=== PATIENT | female | born 1970 | race Caucasian/White ===

== ENCOUNTER → 2017-09-26 | Outpatient (RCR) | payer OTHER | END | disposition home or self-care (01) | LOC: PT | DX: Z47.89 Encounter for other orthopedic aftercare (principal) ==

== ENCOUNTER → 2017-12-27 | Outpatient (RCR) | payer OTHER | END | disposition home or self-care (01) | LOC: PT | DX: Z47.89 Encounter for other orthopedic aftercare (principal) ==

== ENCOUNTER 2018-02-21 13:30 | Outpatient (RCR) | payer OTHER | END 2018-02-21 14:00 | disposition home or self-care (01) | LOC: PT 13:30 | DX: M75.121 Complete rotator cuff tear or rupture of right shoulder, not specified as traumatic (principal) ==

== ENCOUNTER → 2019-09-16 | Outpatient (CLI) | payer OTHER ==
[~2019-09-16] MED LIST: ADVIL200 MG PO; CLINDAMYCIN300 MG PO; DIPHEDRYL25 MG PO; GABAPENTIN TAB600 MG PO; LIORESAL 1010 MG/TAB PO; NAPROXEN500 MG PO; NORCO 325 MG-51 TA1 PO; NORCO 325 MG-51 TAB PO; PEPCID 20MG TAB20 MG PO; PREDNISONE10 M1 PO; SYNTHROID0.125 MG PO; TENORMIN25 MG PO; ULTRAM 50MG TAB50 MG PO; XANAX1 MG PO
== END ==
LOC: LAB 15:04
DX: F17.200 Nicotine dependence, unspecified, uncomplicated (principal); R06.02 Shortness of breath; R05 Cough; R51 Headache; R68.83 Chills (without fever); Z87.01 Personal history of pneumonia (recurrent)

== ENCOUNTER 2020-06-09 16:00 | Emergency (ER) | payer OTHER ==
[~2020-06-09 16:00] MED LIST changes: +ADVIL 200MG TA200 MG PO; -ADVIL200 MG PO; -SYNTHROID0.125 MG PO; +SYNTHROID112 MCG PO
[2020-06-09] MEDS ORDERED: DAILY VALUE1 EACH PO (16:45)
[2020-06-09] MEDS ORDERED: ACETAMINOPHEN-H1 TA1 PO (16:47)
[2020-06-09] MEDS ORDERED: CELEXA 20MG20 MG/TA1 PO (16:48)
[2020-06-09 16:50] LABS: EOS # 0.1 (0.04-0.40); EOS % 1.5 % (1.0-5.0); HEMATOCRIT 48.5 % (37.0-47.0); LYMPH# 2.4 (1.50-4.00); MEAN CELL VOLUME 95 fl (78-100); MEAN CORPUSCULAR HEMOGLOBIN 31 pg (27-31); MEAN CORPUSCULAR HGB CONC 33 g/dL (33-37); MEAN PLATELET VOLUME 9.2 fl (7.4-10.4); MONO # 0.5 (0.20-0.80); NEU # 6.1 (1.40-6.50); PLATELET COUNT 285 K/mm3 (130-400); RED BLOOD COUNT 5.09 M/mm3 (4.10-5.30); RED CELL DISTRIBUTION WIDTH 12.5 % (11.5-14.5); WHITE BLOOD COUNT 9.2 K/mm3 (4.8-10.8)
[2020-06-09 16:57] LABS: POTASSIUM 3.7 mmol/L (3.5-5.1)
[2020-06-09 16:58] LABS: ALBUMIN 4.6 g/dL (3.5-5.0); SODIUM 142 mmol/L (136-145)
[2020-06-09 16:59] LABS: CALCIUM 9.3 mg/dL (8.3-10.5)
[2020-06-09 17:01] LABS: GLUCOSE 128 mg/dL (65-105); TOTAL PROTEIN 7.6 g/dL (6.4-8.3)
[2020-06-09 17:02] LABS: CARBON DIOXIDE 22 mmol/L (22-29); TOTAL BILIRUBIN 0.5 mg/dL (0.2-1.2)
[2020-06-09 17:06] LABS: AST-SGOT 17 U/L (5-34)
[2020-06-09 17:08] LABS: ALT/SGPT 21 U/L (0-55)
[2020-06-09 17:16] LABS: TROPONIN-I < 0.03 ng/mL (<0.030)
[2020-06-09 17:24] LABS: D-DIMER 0.17 mg/L FEU (0.15-0.50)
[2020-06-09 20:31] VITALS: BP 113/75
== END 2020-06-09 20:48 | disposition home or self-care (01) ==
LOC: ED 16:00
PROVIDERS: Nurse Practitioner Family
DX: M79.10 Myalgia, unspecified site (principal); G89.29 Other chronic pain; R55 Syncope and collapse; R19.7 Diarrhea, unspecified; R42 Dizziness and giddiness; E03.9 Hypothyroidism, unspecified; F17.210 Nicotine dependence, cigarettes, uncomplicated; Z20.822 Contact with and (suspected) exposure to COVID-19; Z90.710 Acquired absence of both cervix and uterus; Z79.890 Hormone replacement therapy; Z79.891 Long term (current) use of opiate analgesic
CPT/HCPCS: J2405; J7030

== ENCOUNTER → 2021-10-04 | Outpatient (CLI) | payer OTHER ==
[~2021-10-04] MED LIST changes: +ACETAMINOPHEN-H1 TA1 PO; +CELEXA 20MG20 MG/TA1 PO; +DAILY VALUE1 EACH PO
== END ==
LOC: RAD 09-29 08:00
DX: K82.9 Disease of gallbladder, unspecified (principal); K81.9 Cholecystitis, unspecified

== ENCOUNTER → 2021-11-15 | Outpatient (CLI) | payer OTHER | LOC: MAMMO 14:08 | DX: Z12.31 Encounter for screening mammogram for malignant neoplasm of breast (principal); N63.10 Unspecified lump in the right breast, unspecified quadrant; N63.20 Unspecified lump in the left breast, unspecified quadrant ==

== ENCOUNTER → 2021-12-02 | Outpatient (CLI) | payer OTHER | LOC: RAD 12:58 | DX: N60.02 Solitary cyst of left breast (principal); N60.01 Solitary cyst of right breast ==

== ENCOUNTER → 2022-04-16 | Outpatient (CLI) | payer OTHER ==
[~2022-04-16] MED LIST changes: +ALPRAZOLAM1 MG PO; +ASPIRIN E.C. 8181 MG; +ONDANSETRON HYDR4 MG PO; +TIZANIDINE HYDRO4 MG PO
== END ==
LOC: LAB 07:30
DX: Z51.81 Encounter for therapeutic drug level monitoring (principal)

== ENCOUNTER → 2023-03-20 | Outpatient (CLI) | payer OTHER ==
[~2023-03-20] MED LIST changes: +PREDNISONE20 M1 PO; +SUCRALFATE1 G1 PO
== END ==
LOC: RAD 15:31
DX: Z01.818 Encounter for other preprocedural examination (principal)

== ENCOUNTER → 2023-07-12 | Outpatient (CLI) | payer SELFPAY | LOC: RAD 11:00 | DX: M47.816 Spondylosis without myelopathy or radiculopathy, lumbar region (principal); M43.16 Spondylolisthesis, lumbar region; Z98.1 Arthrodesis status ==

== ENCOUNTER 2023-07-26 14:08 | Outpatient (RCR) | payer SELFPAY | END 2023-08-03 | disposition home or self-care (01) | LOC: PT | DX: Z98.890 Other specified postprocedural states (principal) ==

== ENCOUNTER 2023-08-04 08:00 | Outpatient (RCR) | payer OTHER | END 2023-09-03 | disposition home or self-care (01) | LOC: PT | DX: Z98.1 Arthrodesis status (principal) ==

== ENCOUNTER 2024-02-01 12:59 | Emergency (ER) | payer SELFPAY ==
[~2024-02-01] VITALS: Ht 165.1 cm; Wt 65.9 kg
[2024-02-01] MEDS ORDERED: LISDEXAMFETAMIN20 MG PO (13:13)
[2024-02-01] MEDS ORDERED: BACLOFEN10 M1 PO (13:14)
[2024-02-01] MEDS ORDERED: DULOXETINE60 MG PO (13:15)
[2024-02-01] MEDS ORDERED: diphenhydrAMINE 25 MG CAP PO ONE (13:30)
[2024-02-01] MEDS ORDERED: NS 1,000 ML IV SCH (13:30)
[2024-02-01] MEDS ORDERED: Ondansetron 4 MG/2 ML VIAL IV ONE (13:30)
[2024-02-01 13:31] LABS: BASO # 0.03 K/mm3 (0.02-0.10); EOS # 0.19 K/mm3 (0.04-0.40); EOS % 2.5 % (1.0-5.0); HEMATOCRIT 42.3 % (37.0-47.0); HEMOGLOBIN 14.3 g/dL (12.5-16.0); LYMPH# 1.59 K/mm3 (1.50-4.00); MEAN CELL VOLUME 96 fl (78-100); MEAN CORPUSCULAR HEMOGLOBIN 32 pg (27-31); MEAN CORPUSCULAR HGB CONC 34 g/dL (33-37); MEAN PLATELET VOLUME 8.8 fl (7.4-10.4); MONO # 0.46 K/mm3 (0.20-0.80); NEU # 5.44 K/mm3 (1.40-6.50); PLATELET COUNT 246 K/mm3 (130-400); RED BLOOD COUNT 4.41 M/mm3 (4.10-5.30); RED CELL DISTRIBUTION WIDTH 12.5 % (11.5-14.5); WHITE BLOOD COUNT 7.7 K/mm3 (4.8-10.8)
[2024-02-01 13:41] LABS: ALBUMIN 4.2 g/dL (3.5-5.0)
[2024-02-01 13:42] LABS: CALCIUM 9.6 mg/dL (8.3-10.5)
[2024-02-01 13:44] LABS: TOTAL PROTEIN 6.8 g/dL (6.4-8.3)
[2024-02-01 13:45] LABS: TOTAL BILIRUBIN 0.6 mg/dL (0.2-1.2)
[2024-02-01] MEDS ORDERED: Acetaminophen 500 MG TAB PO ONE (14:00)
[2024-02-01 14:45] LABS: URINE APPEARANCE CLEAR (CLEAR); URINE COLOR YELLOW (YELLOW)
[2024-02-01 14:46] LABS: URINE BILIRUBIN NEGATIVE (NEGATIVE); URINE BLOOD TRACE (NEGATIVE); URINE GLUCOSE NEGATIVE (NEGATIVE); URINE KETONE NEGATIVE (NEGATIVE); URINE LEUKOCYTE ESTERASE NEGATIVE (NEGATIVE); URINE NITRATE NEGATIVE (NEGATIVE); URINE PROTEIN(semi-quant) NEGATIVE (NEGATIVE); URINE WBC 0-1 /hpf (0-3)
[2024-02-01] MEDS ORDERED: PHENERGAN 25 TA25 MG PO (15:04)
[2024-02-01] MEDS ORDERED: GOOD NEIGHBOR M25 M1 PO (15:04)
[2024-02-01 15:14] VITALS: BP 132/85
== END 2024-02-01 15:15 | disposition home or self-care (01) ==
LOC: ED 12:59
PROVIDERS: Nurse Practitioner
DX: F11.23 Opioid dependence with withdrawal (principal); F15.90 Other stimulant use, unspecified, uncomplicated; F17.200 Nicotine dependence, unspecified, uncomplicated
CPT/HCPCS: J2405; J7030

== ENCOUNTER → 2024-02-19 | Outpatient (CLI) | payer SELFPAY ==
[~2024-02-19] MED LIST changes: +BACLOFEN10 M1 PO; +DULOXETINE60 MG PO; +GOOD NEIGHBOR M25 M1 PO; +LISDEXAMFETAMIN20 MG PO; +PHENERGAN 25 TA25 MG PO
[2024-02-19 09:47] LABS: BASO # 0.03 K/mm3 (0.02-0.10); EOS # 0.11 K/mm3 (0.04-0.40); EOS % 1.4 % (1.0-5.0); HEMATOCRIT 44.6 % (37.0-47.0); HEMOGLOBIN 14.5 g/dL (12.5-16.0); LYMPH# 2.59 K/mm3 (1.50-4.00); MEAN CELL VOLUME 99 fl (78-100); MEAN CORPUSCULAR HEMOGLOBIN 32 pg (27-31); MEAN CORPUSCULAR HGB CONC 33 g/dL (33-37); MEAN PLATELET VOLUME 8.9 fl (7.4-10.4); MONO # 0.61 K/mm3 (0.20-0.80); NEU # 4.75 K/mm3 (1.40-6.50); PLATELET COUNT 262 K/mm3 (130-400); RED BLOOD COUNT 4.51 M/mm3 (4.10-5.30); RED CELL DISTRIBUTION WIDTH 12.7 % (11.5-14.5); WHITE BLOOD COUNT 8.1 K/mm3 (4.8-10.8)
[2024-02-19 09:57] LABS: ALBUMIN 4.4 g/dL (3.5-5.0)
[2024-02-19 09:58] LABS: CALCIUM 10.1 mg/dL (8.3-10.5)
[2024-02-19 09:59] LABS: TOTAL PROTEIN 7.2 g/dL (6.4-8.3)
[2024-02-19 10:01] LABS: TOTAL BILIRUBIN 0.6 mg/dL (0.2-1.2)
[2024-02-19 23:13] LABS: FOLLICLE STIMULATING HORMONE 80.9 mIU/mL (())
== END ==
LOC: LAB 09:02
PROVIDERS: Family Medicine
DX: N95.1 Menopausal and female climacteric states (principal); R53.83 Other fatigue; E78.2 Mixed hyperlipidemia

== ENCOUNTER → 2024-03-25 | Outpatient (CLI) | payer SELFPAY | LOC: RAD 12:59 | DX: M43.16 Spondylolisthesis, lumbar region (principal); M43.19 Spondylolisthesis, multiple sites in spine; M51.86 Other intervertebral disc disorders, lumbar region; M48.07 Spinal stenosis, lumbosacral region; Z98.1 Arthrodesis status ==

== ENCOUNTER → 2024-03-26 | Outpatient (CLI) | payer OTHER | LOC: RAD 12:46 | DX: M47.812 Spondylosis without myelopathy or radiculopathy, cervical region (principal); M48.02 Spinal stenosis, cervical region; M25.78 Osteophyte, vertebrae; R29.2 Abnormal reflex ==

== ENCOUNTER → 2024-05-14 | Outpatient (CLI) | payer SELFPAY ==
[2024-05-14 11:50] LABS: CALCIUM 9.6 mg/dL (8.3-10.5)
[2024-05-14 11:51] LABS: TOTAL PROTEIN 6.4 g/dL (6.4-8.3)
[2024-05-14 11:53] LABS: TOTAL BILIRUBIN 0.4 mg/dL (0.2-1.2)
== END ==
LOC: LAB 11:26
PROVIDERS: Family Medicine
DX: E87.6 Hypokalemia (principal); E03.9 Hypothyroidism, unspecified

== ENCOUNTER → 2024-07-18 | Outpatient (CLI) | payer SELFPAY | LOC: LAB 13:52 | DX: E03.9 Hypothyroidism, unspecified (principal) ==

== ENCOUNTER → 2024-09-19 | Outpatient (CLI) | payer SELFPAY | LOC: LAB 14:29 | DX: R52 Pain, unspecified (principal) ==

== ENCOUNTER → 2024-09-20 | Outpatient (CLI) | payer SELFPAY | LOC: RAD 13:02 | DX: R25.1 Tremor, unspecified (principal); M54.9 Dorsalgia, unspecified; R26.89 Other abnormalities of gait and mobility; R53.1 Weakness ==